=== PATIENT | female | born 1970 | race Two or more races ===

== ENCOUNTER 2016-12-05 23:59 | Inpatient (IN) | payer OTHER ==
--- NOTE | ~2016-12-05 | CT4 ---
[facility] A Service of [facility] & [facility] RADIOLOGY TEXT RESULTS PATIENT: CHANO WOODARD LOCATION: [facility] [id number] : [birth year] UNIT #: [id number] AGE: [address]: Laureano Glover MD SEX: F ORDER DR: [id number] [facility] [address] [facility]. [place], [place] [address] [id number] E MR#: [id number] Acc #: [id number] NAME: CHANO WOODARD. : 1970 SEX: F STUDY DATE/TIME: 12/06/2016 02:38 UNIT: FARZANA ROOM: STUDY DESCRIPTION: CT Abd and Pelv Wo Cont Attending Physician: David Ferreira M.D. Ordering Physician: David Ferreira M.D. Primary Care Physician: Gladys Burton Partial MEDICAL IMAGING REPORT This report is preliminary unless electronic signature is present EXAM CT abdomen and pelvis 12/06 at 02:38 INDICATIONS Generalized abdominal pain with nausea for the last 3 days. TECHNIQUE Axial images were obtained through the abdomen and pelvis without contrast. Multiplanar reformats were obtained. This CT exam was performed with one or more of the following radiation dose reduction techniques: automatic control, adjustment of mA and/or kV according to patient size, and iterative reconstruction. Comparison is made with 09/17/2015. FINDINGS ABDOMEN: Lung bases are clear except for some minimal dependent atelectasis in the lower lobes. Gallbladder is contracted and not well evaluated. Bilateral renal cortical scarring is again seen. No renal or ureteral stones are seen. No hydronephrosis. The unenhanced solid organs are otherwise normal. GI tract evaluation is limited without oral contrast. There is no bowel obstruction. Prominent retroperitoneal nodes are stable from prior and felt be benign. PELVIS: The appendix is normal. Remainder of the GI tract is grossly normal as well. IUD present within the uterus. The bladder is normal. There are no lower ureteral stones. Small volume of nonspecific free fluid is again seen in the pelvis. IMPRESSION 1. No clearly acute findings in the abdomen or pelvis. 2. The gallbladder is contracted and overall fairly poorly evaluated on this study. 3. No renal or ureteral stones. No hydronephrosis. Bilateral renal STS. [facility] A Service of [facility] & [facility] RADIOLOGY TEXT RESULTS PATIENT: CHANO WOODARD LOCATION: [facility] [id number] : [birth year] UNIT #: [id number] AGE: [address]: Laureano Glover MD SEX: F ORDER DR: cortical scarring with lobulation is unchanged. 4. Stable appearance to prominent retroperitoneal lymph nodes, presumably benign. 5. Unopacified GI tract is grossly normal, including the appendix. 6. IUD within the uterus. Dictated by... David Newby Jr., M.D. THIS IS AN ELECTRONICALLY VERIFIED REPORT David Newby Jr., M.D. at 12/06/2016 6:02 AM DYLON/susanna TD: 12/06/2016 05:48 JOB #: [id number] MEDICAL IMAGING REPORT Page 1 of 1 COPY
--- NOTE | ~2016-12-05 | US77 ---
[facility] A Service of [facility] RADIOLOGY TEXT RESULTS PATIENT: CHANO WOODARD LOCATION: [facility] : [birth year] UNIT #: [id number] AGE: [address]: Laureano Glover MD SEX: F ORDER DR: [id number] [id number] [place], [place] [address] [id number] I MR#: [id number] Acc #: [id number] NAME: CHANO WOODARD. : 1970 SEX: F STUDY DATE/TIME: 12/07/2016 11:40 UNIT: [facility] ROOM: [facility] STUDY DESCRIPTION: US Kidney Bilateral Complete Attending Physician: Laureano Glover M.D. Ordering Physician: Laureano Glover M.D. Primary Care Physician: Gladys Burton Partial MEDICAL IMAGING REPORT This report is preliminary unless electronic signature is present EXAM Renal ultrasound INDICATIONS Acute kidney injury, BUN 50, creatinine 6.8, GFR 6.6 PROCEDURE Tidwell-scale and Doppler imaging kidneys and bladder. COMPARISON CT from 12/06/2016 FINDINGS Right kidney measures 8.4 cm. Cortical thickness 7 mm. Unremarkable bladder. The left kidney measures 9.7 cm. Cortical thickness 9 mm. Both kidneys have increased echotexture. IMPRESSION No hydronephrosis. Both kidneys show cortical thinning and increased echotexture suggesting changes of chronic renal disease. Dictated by... Guero Durbin M.D. THIS IS AN ELECTRONICALLY VERIFIED REPORT Guero Durbin M.D. at 12/08/2016 7:11 AM EED/mayco TD: 12/07/2016 15:27 JOB #: [id number] MEDICAL IMAGING REPORT [facility] A Service [facility] RADIOLOGY TEXT RESULTS PATIENT: CHANO WOODARD LOCATION: [facility] : [birth year] UNIT #: [id number] AGE: [address]: Laureano Glover MD SEX: F ORDER DR: Page 1 of 1 COPY
--- NOTE | ~2016-12-05 | DS ---
Unit #: [id number] #: [id number] Patient: CHANO WOODARD [id number] [address] [address] [id number] I MR#: [id number] NAME: CHANO WOODARD. ROOM: 567 Age: 46 Sex: F Admission Date: 12/06/2016 : 1970 Discharge Date: Attending Physician: Laureano Glover M.D. Primary Care Physician: Gladys Burton Partial DISCHARGE SUMMARY DISCHARGE DIAGNOSES 1. Abdominal pain and chest pain, most likely secondary to gastritis. 2. Chronic kidney disease stage 4-5. Patient needs dialysis soon as an outpatient. She is following Dr. Taylor as an outpatient. 3. Diabetes mellitus type, insulin dependent. 4. Hypertension. 5. Hyperlipidemia. 6. History of diabetic ketoacidosis. 7. Anxiety. 8. Depression. 9. Psychosis. CONSULTATION Dr. Taylor. PROCEDURE None. DIAGNOSTIC STUDIES LABORATORY: Glucose 330. Urine cultures negative. Creatinine 6.8, carbon dioxide 24, potassium 4.3. WBC 4.2, hemoglobin 9.4, platelets 202,000. IMAGING: Ultrasound of the kidneys negative for any obstruction. ALLERGIES Lisinopril, Demerol. DISCHARGE MEDICATIONS 1. Zoloft 50 mg p.o. daily. 2. Atorvastatin 20 daily. 3. Ambien 5 daily. 4. Klonopin 2 mg at bedtime. 5. Norvasc 10 mg daily. 6. Colace 100 daily. 7. Clonidine 0.2 p.o. three times daily. 8. Lortab 10 mg q.6 p.r.n. pain. 9. Protonix 40 p.o. b.i.d. 10. Levemir 10 units subcutaneous at bedtime. HOSPITALIZATION COURSE A 46 year old admitted because of chest pain, abdominal pain, and worsening kidney disease. Unit #: [id number] #: [id number] Patient: CHANO WOODARD Abdominal pain: CAT scan negative, most likely secondary to gastritis. Chest pain: Rule out acute coronary syndrome. The patient's troponins and EKG are pending, most likely secondary to gastritis. The patient received morphine. If troponin is negative, the patient will be discharged home. Chronic kidney disease stage 4 and 5: The patient seen by Dr. Taylor. He told to follow as an outpatient. Patient might need dialysis soon. She will follow Dr. Taylor as an outpatient. DISPOSITION Discharge home if troponins and EKG are normal. FOLLOWUP 1. Follow with family physician in one week time. 2. Follow with Dr. Taylor on December 14, 2016 at renal clinic. Dictated by... Subha Kern TD: 12/07/2016 17:18 JOB #: [id number] DISCHARGE SUMMARY Page 1 of 1 X Lalita Herrera MD X DISCHARGE SUMMARY
--- NOTE | ~2016-12-05 | CO ---
Unit #: [id number] #: [id number] Patient: CHANO WOODARD [id number] [address] [place], [place] [address] [id number] I MR#: [id number] NAME: CHANO WOODARD. ROOM: 567 Age: 46 Sex: F Admission Date: 12/06/2016 : 1970 Attending Physician: Laureano Glover M.D. Primary Care Physician: Gladys Burton Partial CONSULTATION REPORT REASON FOR CONSULTATION Renal failure and hyponatremia. HISTORY OF PRESENT ILLNESS A 45-year-old female with significant past medical history of chronic kidney disease stage 4 to 5, has not seen me in last many months, but mainly admitted to the hospital, because of some epigastric pain and started on some IV fluid. Already feeling better than before, but the patient's creatinine that was 3.8 last year has increased in last one year to 6.8 now. The patient has no swelling of the legs. Denies any uremic symptoms. Denies any nausea or vomiting. Denies any fever or chills. Recent albumin is 4, with phosphorus of 3.5, and magnesium of 1.7. BNP level was 316. CK was 198. The patient has very high proteinuria in the past and has significant diabetic nephropathy. Blood sugar that was running high in the past now it is somewhat better controlled. PAST MEDICAL HISTORY Significant for diabetes mellitus with diabetic nephropathy and multiple UTIs in the past, history of proteinuria, history of hypertension. PAST SURGICAL HISTORY Significant for hand surgery. SOCIAL HISTORY The patient is a from [place]. She lives with her son. Does not drink alcohol. Nonsmoker. MEDICATIONS Home medications were reviewed. PHYSICAL EXAMINATION GENERAL: The patient is a young female, not in any acute distress. VITAL SIGNS: Last blood pressure is 145/79, pulse 66, temperature 98, respiratory rate is 18. HEAD AND NECK: Pupils are reactive to light. Mucous membranes moist. NECK: Supple. CHEST: Clear. No wheezes, no rales. HEART: Regular rate and rhythm. ABDOMEN: Soft and nontender. EXTREMITIES: No clubbing, cyanosis, or edema. Peripheral pulses are palpable. NEUROLOGIC: Grossly nonfocal. SKIN: Normal. Unit #: [id number] #: [id number] Patient: CHANO WOODARD ASSESSMENT AND PLAN 1. Acute kidney injury in a patient with chronic kidney disease stage 4 to 5. 2. Hypertension. 3. Diabetes mellitus. 4. Epigastric pain, may be some gastritis. DISCUSSION Once GI workup is done and the patient continued to improve, it is okay to discharge the patient. I think the increasing IV fluid will not help with the heart symptom. Her nutritional status is stable. She has no uremic symptoms as per her. I discussed in detail with the help of a cementer machine, at this time, the patient can be discharged and follow up with me in 1 to 2 weeks in my office. Discussed with the patient in detail about the importance of followup and taking care of her chronic kidney disease. Thank you for letting me evaluate and taking care of this patient. Dictated by... Subha Roberts/horacio TD: 12/08/2016 05:54 JOB #: [id number] CONSULTATION REPORT Page 1 of 1 X Montana Taylor MD X CONSULTATION REPORT
--- NOTE | ~2016-12-05 | HP ---
Unit #: [id number] #: [id number] Patient: CHANO WOODARD [id number] [address] [address] [id number] I MR#: [id number] NAME: CHANO WOODARD. ROOM: 567 Age: 46 Sex: F Admission Date: 12/06/2016 : 1970 Attending Physician: Laureano Glover M.D. Primary Care Physician: Gladys Burton Partial HISTORY AND PHYSICAL CHIEF COMPLAINT Chest pain. HISTORY OF PRESENT ILLNESS Patient is a 46-year-old female who presented to [facility] emergency department with a complaint of chest pain. On examination, it appears that the actual pain may be more in the epigastric area. There was no associated nausea or vomiting. No radiation of her chest pain. No diaphoresis. She states it was made better with morphine. Incidentally, the patient was noted to have an elevated creatinine on top of known chronic kidney disease. PAST MEDICAL HISTORY Diabetes, insulin dependent, type 2; hypertension; hyperlipidemia; anxiety/depression; and stage 3-4 chronic kidney disease. PAST SURGICAL HISTORY C section. SOCIAL HISTORY There is no tobacco, alcohol, or illicit drug use. Patient does not speak [place]. FAMILY HISTORY Noncontributory. HOME MEDICATIONS 1. Protonix. 2. Levemir. 3. Catapres. 4. Atorvastatin. 5. Norvasc. 6. KlonoPIN. 7. Zoloft. 8. Hydrocodone/acetaminophen. 9. Colace. 10. Ambien. REVIEW OF SYSTEMS Ten-point review of systems obtained and negative except as per HPI. PHYSICAL EXAMINATION VITAL SIGNS: Temperature 97.9, pulse 84, and blood pressure 161/72. GENERAL: 46-year-old female in no acute distress. Appears stated age. Unit #: [id number] #: [id number] Patient: CHANO WOODARD HEENT: Pupils equally round. Extraocular movements intact. Mucous membranes dry. NECK: Supple. No JVD. No lymphadenopathy. CARDIAC: Regular rate and rhythm. No murmurs, gallops, or rubs. LUNGS: Clear to auscultation bilaterally. ABDOMEN: Mildly tender to palpation in epigastrium, otherwise nontender and nondistended. Positive bowel sounds. EXTREMITIES: No clubbing, cyanosis, or edema. They are warm and dry. PSYCH: Alert and oriented x3. Affect is appropriate. NEUROLOGICAL: Cranial nerves, II-XII, intact grossly. Patient moves all extremities equally and with purpose. SKIN: No rashes, bruises, or ulcers. MUSCULOSKELETAL: No muscle or joint pain. No muscle or joint swelling. DIAGNOSTIC STUDIES LABORATORY: Troponins are negative. As mentioned above, patient's creatinine is 6.8, which is up from 3.6 in September of 2015. Hemoglobin is 10.3. IMAGING: CT abdomen and pelvis show no acute findings. ASSESSMENT AND PLAN 1. Chest pain. The patient will have serial troponins checked and, if negative, likely no stress testing will be needed. She should follow up with cardiology as an outpatient. 2. Acute on chronic kidney disease. My concern is that this patient is in need of dialysis given her creatinine. She is asymptomatic, however, so this may not be the case. Renal consult has been placed. 3. Diabetes. Patient will be started on insulin and low dose sliding scale. 4. Prophylaxis. Patient will be started on SCDs. Dictated by Laureano Glover M.D. MARY/landy TD: 12/23/2016 13:39 JOB #: [id number] HISTORY AND PHYSICAL Page 1 of 1 X Laureano Glover MD HISTORY AND PHYSICAL
--- NOTE | ~2016-12-05 | EKG ---
PATIENT: CHANO WOODARD UNIT #: [id number] Ventricular Rate: 64 BPM Atrial Rate: 64 BPM P-R Interval: 176 ms QRS Duration: 96 ms Q-T Interval: 412 ms QTC Calculation(Bezet): 425 ms P [place]: 37 degrees Calculated R [place]: 38 degrees Calculated T [place]: 54 degrees Diagnosis Line: Normal sinus rhythm Diagnosis Line: Normal ECG Diagnosis Line: When compared with ECG of 17-OCT-2015 10:22, Diagnosis Line: No significant change was found Diagnosis Line: Confirmed by IMTIAZ STOKES MD ([id number]) on 12/07/2016 Diagnosis Line: 11:08:29 PM INTERPRETING MD: DIVYA MURPHY
[~2016-12-05 23:59] MED LIST: ABILIFY5 MG PO; ACID CONTROL20 MG PO; AFREZZA1 EAC1; AL-MAG HYDROX-S30 M1 PO; ALPRAZOLAM; AMBIEN PO; AMLODIPINE BESIL1 GM; AMOXICILLIN500 M1 PO; ANTIDEPRESSANT; APRESOLINE10 M1 PO; ATARAX PO; ATENOLOL25 MG PO; BACTRIM DS TABL1 TA1 PO; BAYER ASPIRIN325 M1 PO; BENTYL10 MG PO; BENTYL20 M1 PO; BENTYL20 MG PO; BIAXIN PO; BUMEX1 MG PO; BUSPAR15 M1 PO; CARDIZEM CD240 M1 PO; CATAPRES-TTS-20.2 M1 EXT; CIPRO PO; CLONIDINE HCL0.1 MG PO; CLONIDINE PO; COLACE PO; COZAAR PO; COZAAR25 MG; CYMBALTA20 MG; CYMBALTA20 MG PO; DESYREL100 MG PO; DESYREL50 MG PO; DOXEPIN HCL50 MG; EFFEXOR-XR150 MG PO; GEODON80 MG PO; HELIDAC KIT; HUMALOG100 U/ML SUBQ; HYDROCODONE-A1 UDTA2 PO; HYDROXYZINE HCL50 MG PO; KEFLEX500 M1 PO; KEFLEX500 M2 PO; LANTUS SOLOSTAR3 ML SUBQ; LANTUS100 U/ML; LANTUS100 U/ML SUBQ; LANTUS100 UNITS/ SUBQ; LASIX20 MG PO; LEVEMIR SUBQ; LEXAPRO PO; LIPITOR20 MG PO; LOPRESSOR PO; LORTAB 10 MG-3473 ML; LORTAB 10-3251 EACH PO; LOSARTAN POTASS50 MG PO; LOTENSIN; MACROBID100 MG; MACROBID100 MG PO; METOPROLOL SUC100 MG; METOPROLOL SUC100 MG PO; METOPROLOL TART25 MG PO; MILK OF MAGNESIA PO; MIRALAX17 GM PO; MIRTAZAPINE30 MG PO; NEURONTIN PO; NEURONTIN300 MG; NEURONTIN600 MG PO; NEXIUM PO; NORVASC; NORVASC PO; NORVASC10 MG PO; NOVOLOG100 U/ML; NOVOLOG100 U/ML SUBQ; PAIN & FEVER325 MG PO; PANTOPRAZOLE SO40 MG PO; PEPCID AC20 M2 PO; PERCOCET PO; PHENERGAN25 M1 PO; PHENERGAN25 MG PO; PRILOSEC20 MG PO; PRILOSEC40 MG PO; PROTONIX PO; REGLAN10 MG PO; SENOKOT S1 TA1; SEROQUEL PO; SODIUM BICARBO650 MG PO; THORAZINE100 MG PO; TOPROL XL100 MG; VICODIN 5-3001 EACH; VISTARIL PO; VISTARIL50 MG PO; XANAFLEX; XANAX0.5 M1 DOB; XANAX0.5 M1 PO; ZOFRAN ODT4 MG/UDTAB PO; ZOFRAN PO; ZOFRANODT SL; ZOLOFT50 MG PO; ZYPREXA10 MG PO
[2016-12-06 00:53] LABS: URINE SOURCE CLEAN CATCH
[2016-12-06 01:00] LABS: BASOPHIL% 0.4 % (0-2.5); EOSINOPHIL# 0.1 X10e3 (0-0.7); EOSINOPHIL% 2.2 % (0.0-7.0); HEMATOCRIT 30.9 % (35.0-45.0); HEMOGLOBIN 10.3 gm/dL (12.0-16.0); LYMPHOCYTE# 0.9 X10e3 (1.0-3.5); LYMPHOCYTE% 15.1 % (17.0-45.0); MEAN CORPUSCULAR HEMOGLOBIN 30.7 PG (28-34); MEAN CORPUSCULAR HGB CONC 33.3 g/dL (30-36); MEAN PLATELET VOLUME 9.4 FL (6.5-11.5); MONOCYTE# 0.3 X10e3 (0-1.0); NEUTROPHIL# 4.4 X10e3 (1.5-7.1); NEUTROPHIL% 77.3 % (40-75); PLATELET COUNT 236 X10e3 (140-420); RED BLOOD COUNT 3.36 X10e (3.90-5.30); WHITE BLOOD COUNT 5.7 X10e3 (4.0-10.5)
[2016-12-06 01:00] LABS: URINE APPEARANCE CLEAR; URINE BILIRUBIN NEG (NEG); URINE BLOOD NEG (NEG); URINE COLOR YELLOW; URINE GLUCOSE 100 MG/DL (NEG); URINE KETONE NEG (NEG); URINE LEUKOCYTE ESTERASE NEG (NEG); URINE NITRATE NEG (NEG); URINE PROTEIN 2+ (NEG); URINE UROBILINOGEN 0.2 MG/DL (NEG)
[2016-12-06 01:03] LABS: CULTURE INDICATED? YES; URBCS1 AUWI 0-2 /[HPF] (0-2); URINE BACTERIA AUWI 2+ (NEGATIVE); URINE SQUAMOUS EPITHELIAL CELL FEW /[HPF]; UWBCS1 AUWI 0-2 (0-5)
[2016-12-06 01:05] LABS: DIFF IND NO
[2016-12-06 01:21] LABS: BILIRUBIN, DIRECT 0.1 mg/dL (0.0-0.2); BILIRUBIN,INDIRECT 0.6 mg/dL (0.0-0.9); BILIRUBIN,TOTAL 0.7 mg/dL (0.2-2.0); BUN/CREATININE RATIO 7.05; CALCIUM SERUM 8.3 mg/dL (8.4-10.2); CREATININE SERUM 6.8 mg/dL (0.6-1.4); GLOM FILT RATE Estimated 6.6 mL/min (>60); POTASSIUM 3.9 mmol/L (3.5-5.1); PROTEIN TOTAL SERUM 7.1 g/dL (6.0-8.3)
[2016-12-06] MEDS ORDERED: AMBIEN PO (04:40)
[2016-12-06] MEDS ORDERED: DOCUSATE SODIU100 MG PO (04:41)
[2016-12-06] MEDS ORDERED: HYDROCODON-ACE1 EAC5 PO (04:41)
[2016-12-06] MEDS ORDERED: ZOLOFT50 MG PO (04:42)
[2016-12-06] MEDS ORDERED: KLONOPIN2 MG PO (04:42)
[2016-12-06] MEDS ORDERED: NORVASC10 MG PO (04:43)
[2016-12-06] MEDS ORDERED: ATORVASTATIN CA20 MG PO (04:43)
[2016-12-06] MEDS ORDERED: CLONIDINE PO (04:44)
[2016-12-06 08:08] LABS: BASOPHIL% 0.9 % (0-2.5); EOSINOPHIL# 0.1 X10e3 (0-0.7); EOSINOPHIL% 3.1 % (0.0-7.0); HEMATOCRIT 29.3 % (35.0-45.0); HEMOGLOBIN 9.8 gm/dL (12.0-16.0); LYMPHOCYTE# 1.1 X10e3 (1.0-3.5); LYMPHOCYTE% 25.4 % (17.0-45.0); MEAN CELL VOLUME 91.1 FL (83-96); MEAN CORPUSCULAR HEMOGLOBIN 30.6 PG (28-34); MEAN CORPUSCULAR HGB CONC 33.6 g/dL (30-36); MEAN PLATELET VOLUME 9.2 FL (6.5-11.5); MONOCYTE# 0.3 X10e3 (0-1.0); MONOCYTE% 6.8 % (3.0-12.0); NEUTROPHIL# 2.8 X10e3 (1.5-7.1); NEUTROPHIL% 63.8 % (40-75); PLATELET COUNT 217 X10e3 (140-420); RED BLOOD COUNT 3.21 X10e (3.90-5.30); RED CELL DISTRIBUTION WIDTH 12.8 % (11.0-15.5); WHITE BLOOD COUNT 4.3 X10e3 (4.0-10.5)
[2016-12-06 08:11] LABS: DIFF IND NO
[2016-12-06 08:39] LABS: BUN/CREATININE RATIO 6.85; CALCIUM SERUM 8.4 mg/dL (8.4-10.2); GLOM FILT RATE Estimated 6.3 mL/min (>60); POTASSIUM 3.6 mmol/L (3.5-5.1)
[2016-12-07 05:11] LABS: EOSINOPHIL# 0.1 X10e3 (0-0.7); EOSINOPHIL% 3.4 % (0.0-7.0); HEMOGLOBIN 9.4 gm/dL (12.0-16.0); LYMPHOCYTE# 1.2 X10e3 (1.0-3.5); LYMPHOCYTE% 28.6 % (17.0-45.0); MEAN CELL VOLUME 91.5 FL (83-96); MEAN CORPUSCULAR HEMOGLOBIN 30.7 PG (28-34); MEAN CORPUSCULAR HGB CONC 33.6 g/dL (30-36); MEAN PLATELET VOLUME 9.2 FL (6.5-11.5); MONOCYTE# 0.2 X10e3 (0-1.0); MONOCYTE% 5.8 % (3.0-12.0); NEUTROPHIL# 2.5 X10e3 (1.5-7.1); NEUTROPHIL% 61.2 % (40-75); PLATELET COUNT 202 X10e3 (140-420); RED BLOOD COUNT 3.06 X10e (3.90-5.30); RED CELL DISTRIBUTION WIDTH 12.9 % (11.0-15.5); WHITE BLOOD COUNT 4.2 X10e3 (4.0-10.5)
[2016-12-07 05:17] LABS: DIFF IND NO
[2016-12-07 06:15] LABS: BUN/CREATININE RATIO 7.35; CALCIUM SERUM 8.7 mg/dL (8.4-10.2); CREATININE SERUM 6.8 mg/dL (0.6-1.4); GLOM FILT RATE Estimated 6.6 mL/min (>60); POTASSIUM 4.3 mmol/L (3.5-5.1)
[2016-12-07 11:11] LABS: IRON SERUM 71 ug/dL (28-170); TOTAL IRON BINDING CAPACITY 166 ug/dL (269-535); TRANSFERRIN 119 mg/dL (192-382); TRANSFERRIN SATURATION 43 % (20-50)
[2016-12-07] MEDS ORDERED: LEVEMIR100 UNITS/ SUBQ (17:30)
[2016-12-07] MEDS ORDERED: PROTONIX40 M1 PO (17:30)
== END 2016-12-07 18:31 | disposition home or self-care (01) | DRG 683 ==
LOC: CED 23:59 → CEDOF 12-06 00:01 → C5C 12-06 13:52
PROVIDERS: Emergency Medicine; Internal Medicine; Internal Medicine Nephrology
DX: N17.9 Acute kidney failure, unspecified (principal); I12.0 Hypertensive chronic kidney disease with stage 5 chronic kidney disease or end stage renal disease; E11.21 Type 2 diabetes mellitus with diabetic nephropathy; K29.70 Gastritis, unspecified, without bleeding; N18.5 Chronic kidney disease, stage 5; E11.22 Type 2 diabetes mellitus with diabetic chronic kidney disease; E78.5 Hyperlipidemia, unspecified; F41.9 Anxiety disorder, unspecified; F32.9 Major depressive disorder, single episode, unspecified; F29 Unspecified psychosis not due to a substance or known physiological condition; Z79.899 Other long term (current) drug therapy; Z79.4 Long term (current) use of insulin
CPT/HCPCS: 36415; 74176; 76770; 80048; 80076; 81003; 82150; 82947; 83540; 83550; 83690; 84484; 84703; 85025; 87086; 89190; 93005; 96361; 96374; 99285; J0885; J1815; J2270; J2405

== ENCOUNTER 2017-01-06 03:16 | Emergency (ER) | payer OTHER ==
--- NOTE | ~2017-01-06 | CT4 ---
[facility]. [facility] A Service of [facility] RADIOLOGY TEXT RESULTS PATIENT: CHANO WOODARD LOCATION: [facility] : [birth year] UNIT #: [id number] AGE: [address]: Edi Interiano MD SEX: F ORDER DR: [id number] [facility] [address] [facility]. [place], [place] [address] [id number] E MR#: [id number] Acc #: [id number] NAME: CHANO WOODARD. : 1970 SEX: F STUDY DATE/TIME: 01/06/2017 5:06 UNIT: [facility] ROOM: STUDY DESCRIPTION: CT Abd and Pelv Wo Cont Attending Physician: Edi Interiano Ordering Physician: Edi Interiano, [id number] Primary Care Physician: Primary Care Physician No MEDICAL IMAGING REPORT This report is preliminary unless electronic signature is present EXAM CT abdomen and pelvis without contrast HISTORY 46-year-old female abdominal pain, nausea, constipation times [address] abdomen and pelvis 12/06/2016. This CT exam was performed with one or more of the following radiation dose reduction techniques: automatic exposure control, adjustment of mA and/or kV according to patient size, and iterative reconstruction. FINDINGS Axial images performed through the abdomen and pelvis following oral contrast only. Multiplanar reconstructed images were reviewed at a workstation. Abdomen: Small amount of right basilar atelectasis. Liver, spleen, gallbladder unremarkable. Pancreas and adrenal glands appear normal. Mild prominence of both renal collecting systems probably represent extrarenal pelves. Small amount cortical scarring particularly in the left kidney. No renal stone. Moderate retroperitoneal lymphadenopathy unchanged from prior studies. Correlate with history for risk factors. Visualized GI tract unremarkable except for moderate amount of formed stool in the left colon and transverse colon. Some stool also seen in the right colon. Findings compatible with patient's history of constipation. Pelvis: IUD seen within the uterus. Bladder unremarkable. Osseous structures and soft tissues unremarkable. IMPRESSION Moderate amount of colonic stool consistent with patient's history of STS. [facility] A Service of [facility] RADIOLOGY TEXT RESULTS PATIENT: CHANO WOODARD LOCATION: [facility] #: [id number] : [birth year] UNIT #: [id number] AGE: [address]: Edi Interiano MD SEX: F ORDER DR: constipation. No acute intraabdominal intrapelvic pathology. No significant change from CT 12/06/2016. Dictated by... Amanuel Wood M.D. THIS IS AN ELECTRONICALLY VERIFIED REPORT Amanuel Wood M.D. at 01/06/2017 10:33 PM Radha TD: 01/06/2017 06:19 JOB #: [id number] MEDICAL IMAGING REPORT Page 1 of 1 COPY
[~2017-01-06 03:16] MED LIST changes: +ATORVASTATIN CA20 MG PO; +DOCUSATE SODIU100 MG PO; +HYDROCODON-ACE1 EAC5 PO; +KLONOPIN2 MG PO; +LEVEMIR100 UNITS/ SUBQ; +PROTONIX40 M1 PO
[2017-01-06 04:10] LABS: URINE SOURCE CLEAN CATCH
[2017-01-06 04:15] LABS: BASOPHIL% 0.8 % (0-2.5); EOSINOPHIL# 0.1 X10e3 (0-0.7); EOSINOPHIL% 1.1 % (0.0-7.0); HEMATOCRIT 25.9 % (35.0-45.0); HEMOGLOBIN 8.8 gm/dL (12.0-16.0); LYMPHOCYTE# 0.8 X10e3 (1.0-3.5); LYMPHOCYTE% 18.1 % (17.0-45.0); MEAN CELL VOLUME 91.7 FL (83-96); MEAN CORPUSCULAR HEMOGLOBIN 31.2 PG (28-34); MEAN PLATELET VOLUME 8.7 FL (6.5-11.5); MONOCYTE# 0.3 X10e3 (0-1.0); MONOCYTE% 5.4 % (3.0-12.0); NEUTROPHIL# 3.4 X10e3 (1.5-7.1); NEUTROPHIL% 74.6 % (40-75); PLATELET COUNT 212 X10e3 (140-420); RED BLOOD COUNT 2.83 X10e (3.90-5.30); RED CELL DISTRIBUTION WIDTH 13.3 % (11.0-15.5); WHITE BLOOD COUNT 4.6 X10e3 (4.0-10.5)
[2017-01-06 04:17] LABS: URINE APPEARANCE CLEAR; URINE BILIRUBIN NEG (NEG); URINE BLOOD TRACE (NEG); URINE COLOR YELLOW; URINE GLUCOSE 250 MG/DL (NEG); URINE KETONE NEG (NEG); URINE LEUKOCYTE ESTERASE NEG (NEG); URINE NITRATE NEG (NEG); URINE PROTEIN 2+ (NEG); URINE SPECIFIC GRAVITY 1.008 (1.003-1.035); URINE UROBILINOGEN 0.2 MG/DL (NEG)
[2017-01-06 04:18] LABS: DIFF IND NO
[2017-01-06 04:19] LABS: CULTURE INDICATED? YES; URBCS1 AUWI 0-2 /[HPF] (0-2); URINE BACTERIA AUWI 1+ (NEGATIVE); URINE SQUAMOUS EPITHELIAL CELL OCC /[HPF]; UWBCS1 AUWI 0-2 (0-5)
[2017-01-06 04:42] LABS: ALBUMIN SERUM 3.8 g/dL (3.5-5.0); ALKALINE PHOSPHATASE 71 U/L (32-92); ALT (SGPT) 10 U/L (10-40); AMYLASE 20 U/L (0-46); AST (SGOT) 15 U/L (10-42); BILIRUBIN,TOTAL 0.4 mg/dL (0.2-2.0); BLOOD UREA NITROGEN 61 mg/dL (9-23); BUN/CREATININE RATIO 7.34; CARBON DIOXIDE 26 mmol/L (22-31); CHLORIDE 85 mmol/L (100-111); CREATININE SERUM 8.3 mg/dL (0.6-1.4); GLOM FILT RATE Estimated 5.2 mL/min (>60); GLUCOSE FASTING 353 mg/dL (70-110); LIPASE 29 U/L (22-51); POTASSIUM 3.8 mmol/L (3.5-5.1); PROTEIN TOTAL SERUM 6.5 g/dL (6.0-8.3)
[2017-01-06 04:43] LABS: BILIRUBIN, DIRECT <0.1 mg/dL (0.0-0.2); BILIRUBIN,INDIRECT 0.3 mg/dL (0.0-0.9); SODIUM 123 mmol/L (135-145)
== END 2017-01-06 06:22 | disposition home or self-care (01) ==
LOC: CED 03:16
PROVIDERS: Emergency Medicine
DX: N17.9 Acute kidney failure, unspecified (principal); N18.9 Chronic kidney disease, unspecified; K59.00 Constipation, unspecified; E87.1 Hypo-osmolality and hyponatremia; F32.9 Major depressive disorder, single episode, unspecified; F17.210 Nicotine dependence, cigarettes, uncomplicated; Z79.899 Other long term (current) drug therapy; Z79.4 Long term (current) use of insulin; Z88.5 Allergy status to narcotic agent; Z88.8 Allergy status to other drugs, medicaments and biological substances
CPT/HCPCS: 36415; 74176; 80048; 80076; 81003; 82150; 83690; 84703; 85025; 87086; 96361; 96374; 96375; 99284; J2270; J2405

== ENCOUNTER 2017-01-26 18:10 | Inpatient (IN) | payer OTHER ==
--- NOTE | ~2017-01-26 | NM22 ---
[facility] A Service of [facility] RADIOLOGY TEXT RESULTS PATIENT: CHANO WOODARD LOCATION: [facility] 563-01 : [birth year] UNIT #: [id number] AGE: [address]: Lalita Herrera MD SEX: F ORDER DR: [id number] [facility] [address] [place], [place] [address] [id number] I MR#: [id number] Acc #: [id number] NAME: CHANO WOODARD : 1970 SEX: F STUDY DATE/TIME: 01/27/2017 11:29 UNIT: [facility] ROOM: [facility] STUDY DESCRIPTION: NM Hepatobiliary W GB Pharm Attending Physician: Lalita Herrera M.D. Ordering Physician: Kya Coyle M.D. Primary Care Physician: Primary Care Physician No MEDICAL IMAGING REPORT This report is preliminary unless electronic signature is present EXAM Hepatobiliary study with gallbladder stimulation INDICATIONS Abdominal pain for 5 years. FINDINGS Patient was given 6 mCi of technetium 99m Choletec. There is prompt visualized of the liver and small bowel and gallbladder. At 150 minutes, the patient was given 1.5 mcg Kinevac and ejection fraction was 67%, which is normal. IMPRESSION AND PLAN Normal study. The ejection fraction is 67%. Dictated by... Jermaine Jolley M.D. THIS IS AN ELECTRONICALLY VERIFIED REPORT Jermaine Jolley M.D. at 01/28/2017 7:05 AM FEL/psc TD: 01/27/2017 20:45 JOB #: [id number] MEDICAL IMAGING REPORT Page 1 of 1 COPY
--- NOTE | ~2017-01-26 | DS ---
Unit #: [id number] #: [id number] Patient: CHANO WOODARD [id number] [address] [address] [id number] I MR#: [id number] NAME: CHANO WOODARD. ROOM: 563 Age: 46 Sex: F Admission Date: 01/27/2017 : 1970 Discharge Date: Attending Physician: Lalita Herrera M.D. Primary Care Physician: No Primary Care Physician DISCHARGE SUMMARY DISCHARGE DIAGNOSES 1. Epigastric pain, likely gastritis with nausea, vomiting, and chest pain. 2. Chronic kidney disease stage 5. 3. Hyponatremia, secondary to hydrochlorothiazide which has been discontinued. 4. Hypertension. 5. Diabetes mellitus type 2, uncontrolled with peripheral neuropathy and gastroparesis. 6. No urinary tract infection, cultures negative. 7. Anxiety. 8. Depression. 9. History of psychosis. 10. Irritable bowel syndrome. CONSULTATION Dr. Taylor. PROCEDURE None. DIAGNOSTIC STUDIES LABORATORY: Glucose 252, sodium 133, potassium 4.3, creatinine 8.3. Liver enzymes normal. Albumin 3.8. WBC 4.1, hemoglobin 8.9, platelets 245,000. HIDA scan negative. Urine culture negative. ALLERGIES Lisinopril and meperidine. DISCHARGE MEDICATIONS 1. Zoloft 50 mg p.o. daily. 2. Ambien 5 mg at bedtime. 3. Klonopin 2 mg at bedtime. 4. Norvasc 10 mg daily. 5. Metoprolol 100 p.o. b.i.d. 6. Colace 100 daily. 7. Lasix 20 daily. 8. Lipitor 20 daily. 9. Cozaar 100 daily. 10. Levemir 15 units subcutaneous q.8 a.m. 11. NovoLog medium-dose sliding scale. 12. Ferrous sulfate 324 p.o. b.i.d. 13. Lortab 10 mg q.6 p.r.n. pain. 14. Protonix 40 p.o. b.i.d. Unit #: [id number] #: [id number] Patient: CHANO WOODARD HOSPITALIZATION COURSE A 46 year old admitted because of epigastric pain. Epigastric pain most likely secondary to gastritis. She did have an EGD in the past which shows gastritis. HIDA scan negative during this time. Patient had a CAT scan of the abdomen and pelvis on January 06, which shows moderate stool but otherwise negative. She did have multiple episodes of abdominal pain. She will follow Dr. Britt as an outpatient. Currently, pain better. She is tolerating diet okay. Also, associated with chest pain, most likely from radiation. She will follow with Dr. Gaspar in three weeks' time. Troponin is negative. EKG normal. Hyponatremia secondary to hydrochlorothiazide which has been discontinued. Chronic kidney disease stage 5: Patient is seen by Dr. Taylor. He does not think patient needs dialysis now. He will follow with her as an outpatient. Diabetes mellitus type 2: Uncontrolled with hypoglycemia and hyperglycemia during the hospitalization course with (1) neuropathy and gastroparesis. I increased her Levemir. Currently, blood sugars are stable. Follow with family physician. Hypertension: Well controlled. DISPOSITION Discharge home. FOLLOWUP 1. Follow with family physician in one week. 2. Follow with Dr. Taylor in two weeks' time. 3. Follow with Dr. Gaspar for three weeks' time. 4. Follow with Dr. Britt in two weeks' time. Discharge time taken is 32 minutes. Dictated by... Subha Kern/kusum TD: 01/29/2017 12:15 JOB #: [id number] DISCHARGE SUMMARY Page 1 of 1 X Lalita Herrera MD X DISCHARGE SUMMARY
--- NOTE | ~2017-01-26 | CO ---
Unit #: [id number] #: [id number] Patient: CHANO WOODARD [id number] [address] [address] [id number] I MR#: [id number] NAME: CHANO WOODARD. ROOM: 563 Age: 46 Sex: F Admission Date: 01/27/2017 : 1970 Attending Physician: Lalita Herrera M.D. Primary Care Physician: No Primary Care Physician CONSULTATION REPORT REASON FOR CONSULTATION Hyponatremia and renal failure. HISTORY OF PRESENT ILLNESS The patient is a 46-year-old female, well known to me, who because of her chronic kidney disease stage 4-5 needed to be initiated on renal replacement therapy but she is refusing. She states she has no uremic symptoms but her sodium is found to be 120. Recently, her hydrochlorothiazide that was about 25 mg a day increased to 50 mg. Now, she is taking 50 mg twice a day by her primary care provider. She denies any other complaint, although she is taking sodium bicarbonate at home and she is not acidotic recently. She denies nausea, vomiting but also complaining of some upper epigastric pain that is bothering her recently. She had the same complaint a few months back. That improved by itself with some PPIs. PAST MEDICAL HISTORY 1. Diabetes mellitus with peripheral neuropathy, nephropathy. 2. Gastroparesis. 3. Chronic kidney disease with BUN of 61. 4. Hypertension. 5. Depression. 6. History of psychosis. 7. Irritable bowel syndrome. 8. . MEDICATIONS Home medications were reviewed again. They did include: 1. Hydrochlorothiazide 50 mg twice a day. 2. Clonidine. 3. Klonopin. 4. Lipitor. 5. Zoloft. FAMILY HISTORY Diabetes. SOCIAL HISTORY Noncontributory. PHYSICAL EXAMINATION GENERAL: Patient is a middle-aged female not in acute distress. VITAL SIGNS: Last blood pressure 152/80, pulse 80, temperature 98, respiratory rate 18. Unit #: [id number] #: [id number] Patient: CHNAO WOODARD HEENT: Pupils reactive to light. Extraocular movements intact. NECK: Supple. No JVD. No palpable lymph nodes in the neck. Thyroid is not enlarged. No carotid bruit. CHEST: Patient has bilateral air entry. No wheeze. No crackles. No bronchial breathing. HEART: Regular rate and rhythm. No murmur. No gallop. ABDOMEN: Soft, minimal tenderness in the epigastric region. No rebound. No guarding. EXTREMITIES: No clubbing, cyanosis, edema. DIAGNOSTIC STUDIES Labs were reviewed. ASSESSMENT 1. Hyponatremia. 2. Chronic kidney disease stage 5. 3. Hypertension. 4. Diabetes mellitus, insulin dependent, with multiple end-organ damage. 5. Epigastric pain, cause uncertain. DISCUSSION At this time, hyponatremia is likely because of the high-dose hydrochlorothiazide in the presence of chronic kidney disease. Will stop the hydrochlorothiazide and will follow with a sodium level closely. Regarding patient's chronic kidney disease, she said she is eating fine. She is not uremic. I had a detailed discussion with the patient with the structural engineering project manager and I told her that as she is losing weight, her albumin level is also slightly less than before. She should be considering renal replacement therapy but she is still adamant that she does not need it at this time. Meanwhile, will make the sodium better with 3% saline and once improved will discharge patient home. She already had a dialysis class and she wants to be on the home dialysis. Dictated by... Subha Roberts TD: 01/29/2017 16:40 JOB #: [id number] CONSULTATION REPORT Page 1 of 1 X Montana Taylor MD X CONSULTATION REPORT
--- NOTE | ~2017-01-26 | HP ---
Unit #: [id number] #: [id number] Patient: CHANO WOODARD [id number] [address] [address] [id number] I MR#: [id number] NAME: CHANO WOODARD. ROOM: 563 Age: 46 Sex: F Admission Date: 01/27/2017 : 1970 Attending Physician: Kya Coyle M.D. Primary Care Physician: No Primary Care Physician HISTORY AND PHYSICAL CHIEF COMPLAINT Abdominal pain, hyponatremia, chronic kidney disease. HISTORY This pleasant 46-year-old female with IDDM, hypertension, gastroparesis, chronic kidney disease, is admitted for hyponatremia. The patient was in her usual state of health until yesterday morning when she developed epigastric pain and nausea. Presented to this emergency department last evening where her sodium was found to be 120. She has chronic kidney disease, but at this point in time wants to wait until the future before dialysis is performed. In the ER, she was bolused with a liter of saline, given Toradol, Zofran and morphine. Currently is feeling somewhat improved. Her previous records - she was noted to have some gallstones on a CT scan although on her last CT scan 01/06/2017, no gallstones were noted. On examination, she is tender in the epigastric region. PAST MEDICAL HISTORY 1. IDDM with peripheral neuropathy and gastroparesis. 2. Chronic kidney disease with last BUN of 61, creatinine of 8.3 earlier in the month. 3. Hypertension. 4. Anxiety, depression and history of psychoses. 5. Irritable bowel syndrome. 6. . 7. Right hand surgery. ALLERGIES Lisinopril and Demerol. HOME MEDICATIONS 1. Zoloft 50 mg daily. 2. Lipitor 20 mg q. h.s. 3. Ambien 5 mg q. h.s. p.r.n. 4. Klonopin 2 mg q. h.s. 5. Norvasc 10 mg daily. 6. Colace 100 mg daily. 7. Clonidine 0.2 mg t.i.d. 8. Levemir 15 units subcu q. a.m. 9. [place] 10/325 q.6 hours as needed. 10. Protonix 40 mg b.i.d. 11. Hydrochlorothiazide 50 mg daily. 12. Iron sulfate 325 mg b.i.d. Unit #: [id number] #: [id number] Patient: CHANO WOODARD 13. Losartan 100 mg daily. FAMILY HISTORY Diabetes mellitus. SOCIAL HISTORY The patient is renting a room but plans to move in her own place. She is originally from [facility]. She is a lifelong nonsmoker, does not drink alcohol. REVIEW OF SYSTEMS Difficult to obtain due to language barrier. [employer] phone was used. PHYSICAL EXAMINATION GENERAL APPEARANCE: Pleasant 46-year-old female, currently in no acute distress. VITAL SIGNS: Temperature 98.4, pulse 83, respirations 18, blood pressure 152/81. O2 saturation is 99% on room air. HEENT: Eyes PERRLA. Extraocular muscles are intact. Pharynx is benign. NECK: Supple without adenopathy or thyromegaly. CHEST: Clear. CARDIAC: Normal S1 and S2 without S3, S4 or murmur. ABDOMEN: Bowel sounds are present. The patient was tender in the epigastric region without rebound, guarding. No hepatosplenomegaly or masses. EXTREMITIES: Without clubbing, cyanosis or edema. Pedal pulses are present. No ulcers on the feet. NEUROLOGIC: The patient is awake, alert, oriented. Cranial nerves are intact. Equal strength throughout. DIAGNOSTIC STUDIES LABORATORY: Admission labs - hematocrit is 25.2. This is stable. Normal white count and platelet count. SMA-12 - glucose 163, BUN 59, creatinine 7.6. Last BUN 61, creatinine of 8.3, sodium 120, chloride is 78. Normal lipase and amylase. Urinalysis - 1+ leukocyte esterase, 10-25 white cells, 1+ bacteria. ASSESSMENT 1. Nausea, vomiting, epigastric pain with questionable gallstones on CT. 2. Chronic kidney disease. 3. Hyponatremia, on hydrochlorothiazide. 4. Hypertension. 5. Insulin dependent diabetes mellitus with peripheral neuropathy and gastroparesis. 6. Questionable urinary tract infection. PLANS 1. IV fluids and supportive treatment. 2. 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 3. One dose of antibiotics pending urine C and S. 4. SCDs for DVT prophylaxis. 5. HIDA scan. Unit #: [id number] #: [id number] Patient: CHANO WOODARD Dictated by Kya Coyle M.D. AML/df TD: 01/27/2017 05:00 JOB #: [id number] HISTORY AND PHYSICAL Page 1 of 1 X Kya Coyle MD X HISTORY AND PHYSICAL
[2017-01-26 19:43] LABS: BASOPHIL% 0.7 % (0-2.5); EOSINOPHIL# 0.1 X10e3 (0-0.7); EOSINOPHIL% 1.4 % (0.0-7.0); HEMATOCRIT 25.2 % (35.0-45.0); HEMOGLOBIN 8.8 gm/dL (12.0-16.0); LYMPHOCYTE# 0.6 X10e3 (1.0-3.5); LYMPHOCYTE% 13.4 % (17.0-45.0); MEAN CELL VOLUME 91.1 FL (83-96); MEAN CORPUSCULAR HEMOGLOBIN 31.7 PG (28-34); MEAN CORPUSCULAR HGB CONC 34.8 g/dL (30-36); MEAN PLATELET VOLUME 8.8 FL (6.5-11.5); MONOCYTE# 0.2 X10e3 (0-1.0); MONOCYTE% 4.6 % (3.0-12.0); NEUTROPHIL# 3.3 X10e3 (1.5-7.1); NEUTROPHIL% 79.9 % (40-75); PLATELET COUNT 239 X10e3 (140-420); RED BLOOD COUNT 2.77 X10e (3.90-5.30); RED CELL DISTRIBUTION WIDTH 13.2 % (11.0-15.5); WHITE BLOOD COUNT 4.1 X10e3 (4.0-10.5)
[2017-01-26 19:45] LABS: DIFF IND NO
[2017-01-26 20:04] LABS: ALBUMIN SERUM 3.9 g/dL (3.5-5.0); BILIRUBIN, DIRECT 0.1 mg/dL (0.0-0.2); BILIRUBIN,INDIRECT 0.3 mg/dL (0.0-0.9); BILIRUBIN,TOTAL 0.4 mg/dL (0.2-2.0); BUN/CREATININE RATIO 7.76; CALCIUM SERUM 8.7 mg/dL (8.4-10.2); CREATININE SERUM 7.6 mg/dL (0.6-1.4); GLOM FILT RATE Estimated 5.7 mL/min (>60); POTASSIUM 3.4 mmol/L (3.5-5.1); PROTEIN TOTAL SERUM 6.5 g/dL (6.0-8.3)
[2017-01-26 20:36] LABS: URINE SOURCE CLEAN CATCH
[2017-01-26 20:42] LABS: URINE APPEARANCE CLEAR; URINE BILIRUBIN NEG (NEG); URINE BLOOD TRACE (NEG); URINE COLOR YELLOW; URINE GLUCOSE NEG (NEG); URINE KETONE NEG (NEG); URINE LEUKOCYTE ESTERASE 1+ (NEG); URINE NITRATE NEG (NEG); URINE PH 8.5 (5-8); URINE PROTEIN 2+ (NEG); URINE SPECIFIC GRAVITY 1.008 (1.003-1.035); URINE UROBILINOGEN 0.2 MG/DL (NEG)
[2017-01-26 20:44] LABS: CULTURE INDICATED? YES; URBCS1 AUWI 0-2 /[HPF] (0-2); URINE BACTERIA AUWI 1+ (NEGATIVE); URINE SQUAMOUS EPITHELIAL CELL NONE SEEN /[HPF]
[2017-01-27] MEDS ORDERED: SERTRALINE HCL50 MG PO (00:27)
[2017-01-27] MEDS ORDERED: CLONAZEPAM2 MG PO (00:28)
[2017-01-27] MEDS ORDERED: AMBIEN PO (00:28)
[2017-01-27] MEDS ORDERED: LIPITOR20 MG PO (00:28)
[2017-01-27] MEDS ORDERED: CLONIDINE PO (00:29)
[2017-01-27] MEDS ORDERED: NORVASC10 MG PO (00:29)
[2017-01-27] MEDS ORDERED: DOCUSATE SODIU100 MG PO (00:29)
[2017-01-27] MEDS ORDERED: LEVEMIR SUBQ (00:30)
[2017-01-27] MEDS ORDERED: HYDROCODON-ACE1 EAC5 PO (00:30)
[2017-01-27] MEDS ORDERED: PROTONIX PO (00:30)
[2017-01-27] MEDS ORDERED: FERROUS SULFATE PO (00:31)
[2017-01-27] MEDS ORDERED: HCTZ PO (00:31)
[2017-01-27] MEDS ORDERED: LOSARTAN POTAS100 MG PO (00:32)
[2017-01-27 05:32] LABS: BASOPHIL% 0.8 % (0-2.5); EOSINOPHIL# 0.1 X10e3 (0-0.7); EOSINOPHIL% 2.2 % (0.0-7.0); HEMOGLOBIN 8.8 gm/dL (12.0-16.0); LYMPHOCYTE# 0.9 X10e3 (1.0-3.5); LYMPHOCYTE% 24.6 % (17.0-45.0); MEAN CELL VOLUME 90.6 FL (83-96); MEAN CORPUSCULAR HGB CONC 35.4 g/dL (30-36); MEAN PLATELET VOLUME 8.3 FL (6.5-11.5); MONOCYTE# 0.3 X10e3 (0-1.0); NEUTROPHIL# 2.4 X10e3 (1.5-7.1); NEUTROPHIL% 65.4 % (40-75); PLATELET COUNT 232 X10e3 (140-420); RED BLOOD COUNT 2.76 X10e (3.90-5.30); RED CELL DISTRIBUTION WIDTH 13.8 % (11.0-15.5); WHITE BLOOD COUNT 3.6 X10e3 (4.0-10.5)
[2017-01-27 05:45] LABS: DIFF IND NO
[2017-01-27 06:13] LABS: BUN/CREATININE RATIO 7.7; CALCIUM SERUM 8.7 mg/dL (8.4-10.2); CREATININE SERUM 7.4 mg/dL (0.6-1.4); GLOM FILT RATE Estimated 5.9 mL/min (>60); POTASSIUM 3.4 mmol/L (3.5-5.1)
[2017-01-27 16:16] LABS: BUN/CREATININE RATIO 7.16; CALCIUM SERUM 8.8 mg/dL (8.4-10.2); CREATININE SERUM 7.4 mg/dL (0.6-1.4); GLOM FILT RATE Estimated 5.9 mL/min (>60); POTASSIUM 3.9 mmol/L (3.5-5.1)
[2017-01-27 20:41] LABS: BUN/CREATININE RATIO 8.51; CALCIUM SERUM 8.2 mg/dL (8.4-10.2); CREATININE SERUM 7.4 mg/dL (0.6-1.4); GLOM FILT RATE Estimated 5.9 mL/min (>60); POTASSIUM 4.8 mmol/L (3.5-5.1)
[2017-01-28 05:43] LABS: HEMATOCRIT 26.7 % (35.0-45.0); HEMOGLOBIN 9.2 gm/dL (12.0-16.0); MEAN CELL VOLUME 91.7 FL (83-96); MEAN CORPUSCULAR HEMOGLOBIN 31.7 PG (28-34); MEAN CORPUSCULAR HGB CONC 34.5 g/dL (30-36); MEAN PLATELET VOLUME 8.3 FL (6.5-11.5); RED BLOOD COUNT 2.91 X10e (3.90-5.30); RED CELL DISTRIBUTION WIDTH 13.3 % (11.0-15.5); WHITE BLOOD COUNT 3.8 X10e3 (4.0-10.5)
[2017-01-28 07:08] LABS: ALBUMIN SERUM 3.7 g/dL (3.5-5.0); BILIRUBIN,TOTAL 0.5 mg/dL (0.2-2.0); BUN/CREATININE RATIO 7.9; CALCIUM SERUM 8.6 mg/dL (8.4-10.2); CREATININE SERUM 8.1 mg/dL (0.6-1.4); GLOM FILT RATE Estimated 5.3 mL/min (>60); POTASSIUM 4.1 mmol/L (3.5-5.1); PROTEIN TOTAL SERUM 6.5 g/dL (6.0-8.3)
[2017-01-28 16:35] LABS: BUN/CREATININE RATIO 6.98; CALCIUM SERUM 8.6 mg/dL (8.4-10.2); CREATININE SERUM 8.3 mg/dL (0.6-1.4); GLOM FILT RATE Estimated 5.2 mL/min (>60); POTASSIUM 4.3 mmol/L (3.5-5.1)
[2017-01-29 06:30] LABS: HEMATOCRIT 25.8 % (35.0-45.0); HEMOGLOBIN 8.9 gm/dL (12.0-16.0); MEAN CELL VOLUME 92.6 FL (83-96); MEAN CORPUSCULAR HEMOGLOBIN 32.1 PG (28-34); MEAN CORPUSCULAR HGB CONC 34.6 g/dL (30-36); MEAN PLATELET VOLUME 8.6 FL (6.5-11.5); RED BLOOD COUNT 2.79 X10e (3.90-5.30); RED CELL DISTRIBUTION WIDTH 13.8 % (11.0-15.5); WHITE BLOOD COUNT 4.1 X10e3 (4.0-10.5)
[2017-01-29 07:43] LABS: ALBUMIN SERUM 3.8 g/dL (3.5-5.0); BILIRUBIN,TOTAL 0.8 mg/dL (0.2-2.0); BUN/CREATININE RATIO 7.46; CALCIUM SERUM 8.7 mg/dL (8.4-10.2); CREATININE SERUM 8.3 mg/dL (0.6-1.4); GLOM FILT RATE Estimated 5.2 mL/min (>60); POTASSIUM 4.3 mmol/L (3.5-5.1); PROTEIN TOTAL SERUM 6.4 g/dL (6.0-8.3)
[2017-01-29] MEDS ORDERED: LOPRESSOR PO (11:48)
[2017-01-29] MEDS ORDERED: LASIX20 MG PO (11:49)
[2017-01-29] MEDS ORDERED: NOVOLOG100 U/ML (11:52)
== END 2017-01-29 13:55 | disposition home or self-care (01) | DRG 683 ==
LOC: CED 18:10 → CEDOF 01-27 00:10 → C5C 01-27 01:39
PROVIDERS: Emergency Medicine; Internal Medicine; Internal Medicine Nephrology
DX: I12.0 Hypertensive chronic kidney disease with stage 5 chronic kidney disease or end stage renal disease (principal); N17.9 Acute kidney failure, unspecified; E11.22 Type 2 diabetes mellitus with diabetic chronic kidney disease; E11.649 Type 2 diabetes mellitus with hypoglycemia without coma; N18.5 Chronic kidney disease, stage 5; K31.84 Gastroparesis; E11.65 Type 2 diabetes mellitus with hyperglycemia; Z79.4 Long term (current) use of insulin; E11.43 Type 2 diabetes mellitus with diabetic autonomic (poly)neuropathy; F41.9 Anxiety disorder, unspecified; F32.9 Major depressive disorder, single episode, unspecified; K58.9 Irritable bowel syndrome, unspecified; D63.1 Anemia in chronic kidney disease; K29.70 Gastritis, unspecified, without bleeding
CPT/HCPCS: 36415; 78227; 80048; 80053; 80076; 81003; 82150; 82947; 83690; 84295; 85025; 85027; 87086; 96361; 96374; 96375; 99285; A9537; C9113; J0360; J0696; J1815; J1885; J2270; J2405; J2805

== ENCOUNTER 2017-03-20 18:16 | Inpatient (IN) | payer OTHER ==
[~2017-03-20] VITALS: Ht 177.8 cm; Wt 78.2 kg
--- NOTE | ~2017-03-20 | CR187 ---
[facility] A Service of [facility] RADIOLOGY TEXT RESULTS PATIENT: CHANO WOODARD LOCATION: [facility] 549 : [birth year] UNIT #: [id number] AGE: [address]: Ever Lizarraga MD SEX: F ORDER DR: [id number] [facility] [address] [facility]. [place], [place] [address] [id number] I MR#: [id number] Acc #: [id number] NAME: CHANO WOODARD : 1970 SEX: F STUDY DATE/TIME: 03/22/2017 10:32 UNIT: [facility] ROOM: [facility] STUDY DESCRIPTION: CR Mandible Min 4 View Attending Physician: Ever Lizarraga M.D. Ordering Physician: Ever Lizarraga M.D. Primary Care Physician: Primary Care Physician No MEDICAL IMAGING REPORT This report is preliminary unless electronic signature is present EXAM Mandible 4 views HISTORY Dental pain FINDINGS Routine views of the mandible demonstrates no fracture deformity. Mandibular condyles appear intact. Evaluation of the dentition is somewhat limited on dental views but dentition appears in gross satisfactory repair. Visualized sinuses unremarkable. IMPRESSION Normal mandible. Evaluation of the dentition somewhat limited on mandibular views but no gross dental pathology is identified. There may be some resorption about the right lower molar but no obvious periodontal disease or obvious dental caries. If clinically warranted, further evaluation with Panorex views or CT may be of benefit. Dictated by... Amanuel Wood M.D. THIS IS AN ELECTRONICALLY VERIFIED REPORT Amanuel Wood M.D. at 03/23/2017 1:32 PM FLOYDS/martine TD: 03/22/2017 18:03 JOB #: [id number] MEDICAL IMAGING REPORT Page 1 of 1 COPY
--- NOTE | ~2017-03-20 | CO ---
Unit #: [id number] #: [id number] Patient: CHANO WOODARD [id number] [address] [place], [place] [address] [id number] I MR#: [id number] NAME: CHANO WOODARD. ROOM: [facility] Age: 46 Sex: F Admission Date: 03/20/2017 : 1970 Attending Physician: Laureano Glover M.D. Consultation Date: 03/21/2017 CONSULTATION REPORT REASON FOR CONSULTATION Elevated creatinine level. HISTORY OF PRESENT ILLNESS The patient is a 46-year-old female with known history of chronic kidney disease stage 5, followed with Dr. Taylor's in the office; also history of hypertension; type 2 diabetes; hemoglobin A1c noted to be 6, history of diabetic neuropathy; gastroparesis; history of depression; and irritable bowel syndrome. Noted to have a creatinine level of 8.1, with previous creatinine levels between 7 to 8. The patient also noted to have an elevated blood sugar of 500 with a potassium of 5.6. We have been asked to see her for elevated creatinine and possible need for dialysis. No reported vomiting or diarrhea. The patient reports weakness, lethargy, and poor p.o. intake in the last 3 days. The patient has been started on IV fluids. PAST MEDICAL HISTORY Significant for chronic kidney disease stage 5, type 2 diabetes, diabetic gastroparesis, peripheral neuropathy, hypertension, history of irritable bowel syndrome, history of hyperlipidemia. PAST SURGICAL HISTORY Significant for , EGD, history of right hand surgery. FAMILY HISTORY Significant for diabetes. SOCIAL HISTORY Does not drink or smoke. REVIEW OF SYSTEMS CVS: No chest pain. RESPIRATORY: No cough or expectoration. GI: As above. : No hematuria or dysuria. HOME MEDICATIONS Include losartan 100 mg daily, Rocaltrol 0.5 mcg by mouth daily, clonazepam, Ambien, Lipitor 20 mg daily, Catapres 0.25 mg b.i.d., Toprol, Norvasc. PHYSICAL EXAMINATION GENERAL: The patient is awake, alert, and oriented. VITAL SIGNS: Temperature is 98.4, heart rate is 87 per minute, blood Unit #: [id number] #: [id number] Patient: WOODARD,CHANO G pressure is 152/81 currently, previously 186/90. HEENT: Head is atraumatic. Extraocular movements are intact. Sclerae are anicteric. NECK: Supple. There is no elevation of JVD. CHEST: Clear. Anteriorly mild basal crackles. S1 and S2 audible. There is no S3. No S4. ABDOMEN: Soft. There is no organomegaly. No guarding. No rigidity. No rebound tenderness. There is no edema. 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 Cerebellar system is intact. DIAGNOSTIC STUDIES WBC 6.4, H and H are 11.1 and 33.9, with a platelet count of 192. Sodium 136, potassium 4.2, chloride 101, CO2 23, BUN 52, creatinine 8.1, glucose 487, calcium 8. Urinalysis without any evidence of infection. IMPRESSION 1. Chronic kidney disease stage 5, the volume is currently satisfactory. No overt uremia. The electrolytes acid base are satisfactory. No acute need for dialysis. We will continue to monitor. We will discontinue the IV fluids. Volume is satisfactory. 2. Hypertension. Add hydralazine to Toprol, Norvasc, and losartan, the patient previously taking. 3. Hyperkalemia. Monitor closely. Might need to discontinue losartan. 4. Anemia, is satisfactory. Check iron profile. 5. Bone profile. Consider phosphorus and PTH level. Continue calcitriol. 6. Check iron profile. 7. Check chest x-ray. We will follow the patient. Dictated by... Luis Enrique Mays M.D. RA/horacio TD: 03/21/2017 15:22 JOB #: [id number] CONSULTATION REPORT Page 1 of 1 X Luis Enrique Mays MD CONSULTATION REPORT
--- NOTE | ~2017-03-20 | CR72 ---
[facility] A Service of [facility] RADIOLOGY TEXT RESULTS PATIENT: CHANO WOODARD LOCATION: [place] [address] : [birth year] UNIT #: [id number] AGE: [address]: Laureano Glover MD SEX: F ORDER DR: [id number] [facility] [address] [facility]. [place], [place] [address] [id number] I MR#: [id number] Acc #: [id number] NAME: CHANO WOODARD : 1970 SEX: F STUDY DATE/TIME: 03/20/2017 19:24 UNIT: [facility] ROOM: 82318 STUDY DESCRIPTION: CR Chest Single View Portable Attending Physician: Laureano Glover M.D. Ordering Physician: David Ferreira M.D. Primary Care Physician: Primary Care Physician No MEDICAL IMAGING REPORT This report is preliminary unless electronic signature is present EXAM Portable chest HISTORY Weakness onset today. History kidney failure. COMPARISON 10/17/2015 FINDINGS AP portable view of the chest demonstrates loss of the lateral aspect of the left hemidiaphragm and blunting of the CP angle compatible with small left pleural effusion. Right lung is clear. Heart, mediastinum unremarkable. The osseous structures appear normal. Dictated by... Amanuel Wood M.D. THIS IS AN ELECTRONICALLY VERIFIED REPORT Amanuel Wood M.D. at 03/21/2017 1:03 PM ALICJA/susanna TD: 03/21/2017 04:27 JOB #: [id number] MEDICAL IMAGING REPORT Page 1 of 1 COPY
--- NOTE | ~2017-03-20 | HP ---
Unit #: [id number] #: [id number] Patient: CHANO WOODARD [id number] [address] [address] [id number] I MR#: [id number] NAME: CHANO WOODARD. ROOM: 554 Age: 46 Sex: F Admission Date: 03/20/2017 : 1970 Attending Physician: Laureano Glover M.D. Primary Care Physician: No Primary Care Physician HISTORY AND PHYSICAL CHIEF COMPLAINT Lethargy, weakness, elevated blood sugar. DISCUSSION This is a 46-year-old female who has a history of chronic kidney disease stage 5, under evaluation of peritoneal dialysis, history of hypertension, insulin-dependent diabetes - uncontrolled, diabetic peripheral neuropathy, gastroparesis, anxiety, depression, psychosis, irritable bowel syndrome and dyslipidemia. She prednisone to the emergency room with the chief complaint of having generalized weakness, elevated blood sugar. She was found to have creatinine of 8, blood sugar 500, sodium 128 and eventually was admitted. She has a potassium of 5.6. She is complaining of some headache and some facial toothache pain. Denies any other complaint. No blood in the stool or dysuria or any other complaint. PAST MEDICAL HISTORY 1. History of insulin-dependent diabetes with diabetic peripheral neuropathy and gastroparesis. 2. Chronic kidney disease stage 5. 3. Hypertension. 4. Anxiety, depression, psychosis. 5. History of irritable bowel syndrome and gastroduodenitis on EGD in 2016. 6. History of dyslipidemia. 7. History of hyponatremia. PAST SURGICAL HISTORY 1. History of . 2. EGD in 2016 showing mild gastroduodenitis. 3. History of right hand surgery. FAMILY HISTORY Diabetes in the family. SOCIAL HISTORY She is not smoking. Does not drink alcohol. No other illicit drug use. REVIEW OF SYSTEMS She speaks [place]. All review of systems is obtained through [facility] and also (1) , ER physician, who was also at the bedside with me while interviewing the patient. MEDICATIONS FROM HOME 1. Lantus 15 units in the morning. Unit #: [id number] #: [id number] Patient: CHANO WOODARD 2. Losartan 100 mg daily. 3. Calcitriol 0.5 mg daily. 4. Hydrocodone 10 mg q.i.d. 5. Clonazepam 2 mg b.i.d. 6. Ambien 10 mg at bedtime. 7. Lipitor 20 mg daily. 8. Zoloft 50 mg daily. 9. Catapres 0.25 mg b.i.d. 10. Toprol XL 100 mg daily. 11. Norvasc 10 mg daily. PHYSICAL EXAMINATION GENERAL: Middle-aged female lying in bed comfortably, currently not in any distress. CURRENT VITALS: Temperature is 98.4, heart rate 87, respirations 16, blood pressure 152/81. HEENT: Pupils are equal and reactive to light and accommodation. Extraocular muscles are intact. Pharynx is benign. NECK: Neck is supple. No JVD. No thyromegaly. RESPIRATORY: Lungs clear to auscultation. No rhonchi. No wheezing. HEART: S1, S2. Regular rate and rhythm. ABDOMEN: Abdomen is soft, nontender, nondistended. Bowel sounds are positive. EXTREMITIES: Inspection is normal. No cyanosis. No clubbing. No edema. NEUROLOGIC: She is alert, awake, oriented x3. Cranial nerves II-XII intact. Power 5/5 on both sides. SKIN: Warm and dry. PSYCHIATRIC: Normal mood and affect. DIAGNOSTIC STUDIES LABORATORY WORKUP: Sodium 128, potassium 5.6, chloride 93, glucose 574, BUN 55, creatinine 8.2. LFTs within normal limits. White count 6, hemoglobin 11, hematocrit 35, platelets 206. Troponin less than 0.05. ABG - pH 7.35, CO2 45, oxygen 66. IMAGING: Chest x-ray shows left pleural effusion. ASSESSMENT AND PLAN 1. Chronic kidney disease stage 5. She is telling me that she has been under evaluation for peritoneal dialysis. The patient is going to be admitted. Ask nephrology to evaluate. This is endstage kidney disease. She possibly needs hemodialysis. Further recommendations as per nephrology. 2. Hyperkalemia. She was given calcium gluconate and Kayexalate. Will repeat potassium in the morning. 3. Insulin-dependent diabetes with hyperglycemia, uncontrolled. Place on sliding scale. Continue Lantus. Check A1C. 4. Hyponatremia. Most likely secondary to hyperglycemia. She used to be on Hydrochlorothiazide in the past, which has been discontinued. 5. Tooth ache. 6. Left pleural effusion on x-ray. 7. History of diabetes peripheral neuropathy, chronic pain, gastroparesis, on hydrocodone. 8. History of anxiety, depression, psychosis. 9. History of irritable bowel syndrome/gastroduodenitis. 10. Dyslipidemia. 11. Deep venous thrombosis prophylaxis. Will place the patient on sequential compression devices. Unit #: [id number] #: [id number] Patient: CHANO WOODARD Dictated by Subha Gray/robert TD: 03/21/2017 10:39 JOB #: [id number] HISTORY AND PHYSICAL Page 1 of 1 X X HISTORY AND PHYSICAL
--- NOTE | ~2017-03-20 | CR63 ---
[facility] A Service of [facility] & [facility] RADIOLOGY TEXT RESULTS PATIENT: CHANO WOODARD LOCATION: [facility] [address] : [birth year] UNIT #: [id number] AGE: [address]: Ever Lizarraga MD SEX: F ORDER DR: [id number] [facility] [address] [facility]. [place], [place] [address] [id number] I MR#: [id number] #: [id number] NAME: CHANO WOODARD. : 1970 SEX: F STUDY DATE/TIME: 03/22/2017 10:13 UNIT: [facility] ROOM: [facility] STUDY DESCRIPTION: CR Chest 2 View Attending Physician: Ever Lizarraga M.D. Ordering Physician: Ever Lizarraga M.D. Primary Care Physician: No Primary Care Physician MEDICAL IMAGING REPORT This report is preliminary unless electronic signature is present EXAM Chest 03/22/2017, 10:13 hours, [facility]. HISTORY 46-year-old woman, short of air, left upper tooth pain, possible abscess x1 week. COMPARISON Chest 03/20/2017. FINDINGS Two-view chest now demonstrates cardiomegaly with generalized vascular congestion, bilateral pleural effusions and atelectasis in both lung bases. IMPRESSION Significant interim change. Findings now consistent with congestive heart failure. Moderate atelectasis in the lung bases along with effusions. Infiltrates are not completely excluded. Correlate clinically in this regard. Dictated by... Maikol Avila M.D. THIS IS AN ELECTRONICALLY VERIFIED REPORT Maikol Avila M.D. at 03/22/2017 3:08 PM JOSE/star TD: 03/22/2017 14:46 JOB #: [id number] MEDICAL IMAGING REPORT Page 1 of 1 COPY
--- NOTE | ~2017-03-20 | EKG ---
PATIENT: CHANO WOODARD UNIT #: [id number] Ventricular Rate: 83 BPM Atrial Rate: 83 BPM P-R Interval: 162 ms QRS Duration: 84 ms Q-T Interval: 384 ms QTC Calculation(Bezet): 451 ms P Jackson: 55 degrees Calculated R Jackson: 54 degrees Calculated T Jackson: 65 degrees Diagnosis Line: Normal sinus rhythm Diagnosis Line: Normal ECG Diagnosis Line: When compared with ECG of 07-DEC-2016 16:19, Diagnosis Line: No significant change was found Diagnosis Line: Confirmed by DORINA NUR MD ([id number]) on Diagnosis Line: 03/21/2017 11:15:41 PM INTERPRETING MD: LIUDMILA MURPHY
[~2017-03-20 18:16] MED LIST changes: +CLONAZEPAM2 MG PO; +FERROUS SULFATE PO; +HCTZ PO; +LOSARTAN POTAS100 MG PO; +SERTRALINE HCL50 MG PO
[2017-03-20 19:23] LABS: ARTERIAL BLOOD GAS CARBOXY HB 3.2 %sat (0.0-9.0); ARTERIAL BLOOD GAS HCO3 25.5 mmol/L; ARTERIAL BLOOD GAS MET HB 0.8 %sat (0.0-2.0); ARTERIAL BLOOD GAS PCO2 45.2 mmHg (35.0-45.0); ARTERIAL BLOOD GAS pH 7.359 (7.350-7.450)
[2017-03-20 19:24] LABS: ARTERIAL BLOOD GAS DELIVERY RA; ARTERIAL BLOOD GAS PO2 36.4 mmHg (80.0-100); ARTERIAL DRAW? NO
[2017-03-20 19:47] LABS: POC - CKMB 1.4 ng/mL (0.0-7.9); POC - TROPONIN <0.05 ng/mL (<=0.05)
[2017-03-20 19:48] LABS: BASOPHIL% 0.6 % (0-2.5); EOSINOPHIL# 0.1 X10e3 (0-0.7); EOSINOPHIL% 1.4 % (0.0-7.0); HEMATOCRIT 35.3 % (35.0-45.0); HEMOGLOBIN 11.4 gm/dL (12.0-16.0); LYMPHOCYTE# 0.4 X10e3 (1.0-3.5); MEAN CELL VOLUME 100.2 FL (83-96); MEAN CORPUSCULAR HEMOGLOBIN 32.4 PG (28-34); MEAN CORPUSCULAR HGB CONC 32.3 g/dL (30-36); MEAN PLATELET VOLUME 8.5 FL (6.5-11.5); MONOCYTE# 0.2 X10e3 (0-1.0); MONOCYTE% 3.3 % (3.0-12.0); NEUTROPHIL# 5.5 X10e3 (1.5-7.1); NEUTROPHIL% 88.7 % (40-75); PLATELET COUNT 206 X10e3 (140-420); RED BLOOD COUNT 3.53 X10e (3.90-5.30); WHITE BLOOD COUNT 6.2 X10e3 (4.0-10.5)
[2017-03-20 19:49] LABS: DIFF IND NO
[2017-03-20 20:13] LABS: ALBUMIN SERUM 4.2 g/dL (3.5-5.0); BILIRUBIN, DIRECT 0.1 mg/dL (0.0-0.2); BILIRUBIN,INDIRECT 0.8 mg/dL (0.0-0.9); BILIRUBIN,TOTAL 0.9 mg/dL (0.2-2.0); BUN/CREATININE RATIO 6.7; CREATININE SERUM 8.2 mg/dL (0.6-1.4); GLOM FILT RATE Estimated 5.2 mL/min (>60); PROTEIN TOTAL SERUM 7.5 g/dL (6.0-8.3)
[2017-03-20 20:14] LABS: POTASSIUM 5.6 mmol/L (3.5-5.1)
[2017-03-20] MEDS ORDERED: ZOLOFT50 MG PO (20:56)
[2017-03-20] MEDS ORDERED: LIPITOR20 MG PO (20:56)
[2017-03-20] MEDS ORDERED: CATAPRES-TTS-20.2 M1 PO (20:56)
[2017-03-20] MEDS ORDERED: TOPROL XL100 MG PO (20:57)
[2017-03-20] MEDS ORDERED: NORVASC10 MG PO (20:58)
[2017-03-20] MEDS ORDERED: CALCITRIOL0.5 MCG PO (20:58)
[2017-03-20] MEDS ORDERED: LOSARTAN POTAS100 MG PO (20:58)
[2017-03-20] MEDS ORDERED: HYDROCODON-ACE1 EAC5 PO (20:59)
[2017-03-20] MEDS ORDERED: CLONAZEPAM2 MG PO (20:59)
[2017-03-20] MEDS ORDERED: AMBIEN10 MG PO (21:00)
[2017-03-20] MEDS ORDERED: LANTUS100 U/ML SUBQ (21:07)
[2017-03-21 00:34] LABS: URINE SOURCE CLEAN CATCH
[2017-03-21 00:37] LABS: URINE APPEARANCE CLEAR; URINE BILIRUBIN NEG (NEG); URINE BLOOD NEG (NEG); URINE COLOR YELLOW; URINE GLUCOSE 250 MG/DL (NEG); URINE KETONE NEG (NEG); URINE LEUKOCYTE ESTERASE NEG (NEG); URINE NITRATE NEG (NEG); URINE PH 8.5 (5-8); URINE PROTEIN 2+ (NEG); URINE SPECIFIC GRAVITY 1.008 (1.003-1.035); URINE UROBILINOGEN 0.2 MG/DL (NEG)
[2017-03-21 00:40] LABS: CULTURE INDICATED? YES; URBCS1 AUWI 0-2 /[HPF] (0-2); URINE BACTERIA AUWI 1+ (NEGATIVE); URINE SQUAMOUS EPITHELIAL CELL OCC /[HPF]; UWBCS1 AUWI 0-2 (0-5)
[2017-03-21 05:23] LABS: BASOPHIL% 0.6 % (0-2.5); EOSINOPHIL# 0.1 X10e3 (0-0.7); EOSINOPHIL% 2.1 % (0.0-7.0); HEMATOCRIT 33.9 % (35.0-45.0); HEMOGLOBIN 11.1 gm/dL (12.0-16.0); MEAN CORPUSCULAR HEMOGLOBIN 32.5 PG (28-34); MEAN CORPUSCULAR HGB CONC 32.8 g/dL (30-36); MEAN PLATELET VOLUME 8.1 FL (6.5-11.5); MONOCYTE# 0.3 X10e3 (0-1.0); MONOCYTE% 4.2 % (3.0-12.0); NEUTROPHIL# 4.9 X10e3 (1.5-7.1); NEUTROPHIL% 77.1 % (40-75); PLATELET COUNT 192 X10e3 (140-420); RED BLOOD COUNT 3.43 X10e (3.90-5.30); RED CELL DISTRIBUTION WIDTH 15.1 % (11.0-15.5); WHITE BLOOD COUNT 6.4 X10e3 (4.0-10.5)
[2017-03-21 05:44] LABS: BUN/CREATININE RATIO 6.41; CREATININE SERUM 8.1 mg/dL (0.6-1.4); GLOM FILT RATE Estimated 5.3 mL/min (>60); POTASSIUM 4.3 mmol/L (3.5-5.1)
[2017-03-21 06:44] LABS: DIFF IND NO
[2017-03-22 05:14] LABS: HEMATOCRIT 30.4 % (35.0-45.0); HEMOGLOBIN 9.8 gm/dL (12.0-16.0); MEAN CELL VOLUME 101.3 FL (83-96); MEAN CORPUSCULAR HEMOGLOBIN 32.6 PG (28-34); MEAN CORPUSCULAR HGB CONC 32.2 g/dL (30-36); MEAN PLATELET VOLUME 8.3 FL (6.5-11.5); RED CELL DISTRIBUTION WIDTH 14.8 % (11.0-15.5)
[2017-03-22 06:03] LABS: BUN/CREATININE RATIO 6.75; CALCIUM SERUM 7.1 mg/dL (8.4-10.2); GLOM FILT RATE Estimated 5.4 mL/min (>60); POTASSIUM 4.7 mmol/L (3.5-5.1)
[2017-03-23 05:59] LABS: HEMATOCRIT 26.2 % (35.0-45.0); HEMOGLOBIN 8.9 gm/dL (12.0-16.0); MEAN CELL VOLUME 98.5 FL (83-96); MEAN CORPUSCULAR HEMOGLOBIN 33.5 PG (28-34); MEAN PLATELET VOLUME 8.3 FL (6.5-11.5); RED BLOOD COUNT 2.66 X10e (3.90-5.30); RED CELL DISTRIBUTION WIDTH 14.6 % (11.0-15.5); WHITE BLOOD COUNT 4.5 X10e3 (4.0-10.5)
[2017-03-23 06:57] LABS: ALBUMIN SERUM 3.3 g/dL (3.5-5.0); BILIRUBIN,TOTAL 0.3 mg/dL (0.2-2.0); BUN/CREATININE RATIO 6.7; CALCIUM SERUM 7.2 mg/dL (8.4-10.2); CREATININE SERUM 7.9 mg/dL (0.6-1.4); GLOM FILT RATE Estimated 5.5 mL/min (>60); MAGNESIUM 1.7 mg/dL (1.6-3.0); POTASSIUM 4.9 mmol/L (3.5-5.1); PROTEIN TOTAL SERUM 5.7 g/dL (6.0-8.3)
[2017-03-23] MEDS ORDERED: BUMEX PO (15:30)
[2017-03-23] MEDS ORDERED: ALOGLIPTIN6.25 MG PO (15:30)
== END 2017-03-23 17:02 | disposition home or self-care (01) | DRG 682 ==
LOC: CED 18:16 → C5B 21:15 → CEDOF 21:15 → CED 21:39 → C5B 03-21 08:05 → CEDOF 03-21 08:05 → C5B 03-22 00:26
PROVIDERS: Emergency Medicine; Internal Medicine; Internal Medicine Nephrology
DX: N17.9 Acute kidney failure, unspecified (principal); I50.33 Acute on chronic diastolic (congestive) heart failure; K31.84 Gastroparesis; E11.65 Type 2 diabetes mellitus with hyperglycemia; E11.43 Type 2 diabetes mellitus with diabetic autonomic (poly)neuropathy; E87.1 Hypo-osmolality and hyponatremia; E87.5 Hyperkalemia; I13.2 Hypertensive heart and chronic kidney disease with heart failure and with stage 5 chronic kidney disease, or end stage renal disease; N18.5 Chronic kidney disease, stage 5; E10.40 Type 1 diabetes mellitus with diabetic neuropathy, unspecified; F41.9 Anxiety disorder, unspecified; F32.9 Major depressive disorder, single episode, unspecified; K58.9 Irritable bowel syndrome, unspecified; E78.5 Hyperlipidemia, unspecified; Z83.3 Family history of diabetes mellitus; Z79.4 Long term (current) use of insulin; D64.9 Anemia, unspecified; K08.89 Other specified disorders of teeth and supporting structures
CPT/HCPCS: 70110; 71010; 71020; 80048; 80053; 80076; 81003; 82553; 82728; 82803; 82947; 83036; 83540; 83550; 83735; 84484; 85025; 85027; 87086; 93005; 94760; 97166; 99285; G8987-GO; G8988-GO; G8989-GO; J0360; J1650; J1815; J2270; J2405